=== PATIENT | female | born 1935 | race Caucasian/White ===

== ENCOUNTER 2016-10-06 13:20 | Inpatient (IN) | payer MEDICARE ==
[~2016-10-06] VITALS: Ht 165.1 cm; Wt 87.3 kg
[~2016-10-06 13:20] MED LIST: ALPR0.5T6 PO; APIX2.5T PO; ASPI-515; CALC1TAB87; CHOL200012 PO; ENAL20TA68 PO; HYDR-3240 PO; LOVA10TA PO; METO-93 PO; MULT-516 PO; OMEP20CA9 PO; POLY17PO5 PO; SENN-25 PO; TUMS PO; WARF5TAB
[2016-10-06 14:17] VITALS: BP 125/75
[2016-10-06] MEDS ORDERED: SODIUM CHLORIDE 0.9% 1,000 ML IV SCH (14:30)
[2016-10-06] MEDS ORDERED: MIDAZOLAM 1 MG/ML, 5ML ONE (14:54)
[2016-10-06] MEDS ORDERED: PROTAMINE SULFATE 10 MG/ML, 25ML ONE (14:54)
[2016-10-06] MEDS ORDERED: NITROGLYCERIN 5 MG/ML, 10ML ONE (14:55)
[2016-10-06] MEDS ORDERED: FENTANYL PF 100 MCG/2ML ONE (14:55)
[2016-10-06] MEDS ORDERED: FLUMAZENIL 0.1 MG/1 ML, 5ML ONE (14:55)
[2016-10-06] MEDS ORDERED: NALOXONE 1 MG/ML, 2ML ONE (14:55)
[2016-10-06] MEDS ORDERED: HEPARIN 1,000 UNITS/ML, 10ML ONE (14:55)
[2016-10-06] MEDS ORDERED: VISIPAQUE 270 MG/ML, 50ML BOTTLE ONE (15:00)
[2016-10-06 15:04] LABS: BLOOD UREA NITROGEN 21 mg/dL (7-18)
[2016-10-06] MEDS ORDERED: LIDOCAINE 2%, 20ML ONE (15:07)
[2016-10-06] MEDS ORDERED: CEFAZOLIN PMX 1GM/50ML 50 ML ONE (15:18)
[2016-10-06] MEDS ORDERED: HEPARIN 25,000 UNITS/500ML PMX 500 ML ONE (16:19)
[2016-10-06] MEDS ORDERED: ALTEPLASE 10 MG in SODIUM CHLORIDE 0.9% 90 ML IV SCH (16:30)
[2016-10-06] MEDS ORDERED: SODIUM CHLORIDE 0.9% IV ONE (16:30)
[2016-10-06] MEDS ORDERED: ALTEPLASE CATHFLO IV ONE (16:30)
[2016-10-06] MEDS ORDERED: HEPARIN 25,000 UNITS/500ML PMX 500 ML IV ONE (17:00)
[2016-10-06] MEDS ORDERED: ACETAMINOPHEN 325 MG TABLET PO PRN (18:00)
[2016-10-06] MEDS ORDERED: OXYcodone IR 5MG TABLET PO PRN (18:00)
[2016-10-06] MEDS ORDERED: TEMAZEPAM 15 MG CAPSULE PO PRN (18:00)
[2016-10-06] MEDS ORDERED: ENALAPRILAT 1.25 MG/ML, 2ML IVPush PRN (18:00)
[2016-10-06] MEDS ORDERED: ONDANSETRON 2MG/ML, 2ML IVP PRN (18:00)
[2016-10-06] MEDS: ALTEPLASE 10 MG in SODIUM CHLORIDE 0.9% 90 ML IV SCH (18:24)
[2016-10-06] MEDS ORDERED: CEFAZOLIN PMX 2GM/100ML 100 ML IV SCH (18:30)
[2016-10-06] MEDS ORDERED: hydrALAzine 20 MG/ML, 1ML IV PRN (18:30)
[2016-10-06] MEDS ORDERED: POLYETHYLENE GLYCOL 17 GM PACKET PO PRN (19:00)
[2016-10-06] MEDS: SODIUM CHLORIDE 0.9% 1,000 ML IV SCH (19:35)
[2016-10-06] MEDS: MORPHINE SULFATE 4 MG/ML, 1ML IVPush PRN (19:35)
[2016-10-06] MEDS: CEFAZOLIN PMX 2GM/50ML 50 ML IV SCH (20:34)
[2016-10-06] MEDS: SENNA/DOCUSATE TABLET PO SCH (21:00)
[2016-10-06] MEDS: HYDROcodone/APAP 5/325 TABLET PO PRN (22:34)
[2016-10-07] MEDS: ALTEPLASE 10 MG in SODIUM CHLORIDE 0.9% 90 ML IV SCH ×3 (00:10→21:05)
[2016-10-07] MEDS: MORPHINE SULFATE 4 MG/ML, 1ML IVPush PRN (00:10)
[2016-10-07] MEDS: SODIUM CHLORIDE 0.9% 1,000 ML IV SCH ×2 (02:59→14:33)
[2016-10-07] MEDS ORDERED: TRAZODONE 50MG TABLET PO ONE (03:00)
[2016-10-07] MEDS ORDERED: MORPHINE SULFATE 4 MG/ML, 1ML IVPush PRN (04:00)
[2016-10-07 04:50] LABS: ASPARTATE AMINO TRANSFERASE 14 U/L (15-37); BLOOD UREA NITROGEN 18 mg/dL (7-18)
[2016-10-07] MEDS: METOPROLOL SUCCINATE 50 MG TAB.ER.24H PO SCH (05:20)
[2016-10-07] MEDS: SENNA/DOCUSATE TABLET PO SCH ×2 (09:22→22:36)
[2016-10-07] MEDS: MULTIVITAMIN 1 TABLET PO SCH (09:22)
[2016-10-07] MEDS: CEFAZOLIN PMX 2GM/50ML 50 ML IV SCH ×2 (09:22→20:12)
[2016-10-07] MEDS: OMEPRAZOLE 20 MG CAPSULE.DR PO SCH (09:23)
[2016-10-07] MEDS: LOVASTATIN 40 MG TABLET PO SCH (09:23)
[2016-10-07] MEDS: CALCIUM CARBONATE 500 MG TAB.CHEW PO SCH (09:23)
[2016-10-07] MEDS: CHOLECALCIFEROL 1,000 UNIT TABLET PO SCH (09:23)
[2016-10-07] MEDS: ENALAPRIL 20MG TABLET PO SCH (09:24)
[2016-10-07] MEDS ORDERED: FENTANYL PF 100 MCG/2ML ONE ×2 (10:53→16:53)
[2016-10-07] MEDS ORDERED: MIDAZOLAM 1 MG/ML, 5ML ONE ×2 (10:53→16:53)
[2016-10-07] MEDS ORDERED: NALOXONE 1 MG/ML, 2ML ONE ×2 (10:54→16:54)
[2016-10-07] MEDS ORDERED: HEPARIN 1,000 UNITS/ML, 10ML ONE ×2 (10:54→16:54)
[2016-10-07] MEDS ORDERED: FLUMAZENIL 0.1 MG/1 ML, 5ML ONE ×2 (10:54→16:54)
[2016-10-07] MEDS ORDERED: PROTAMINE SULFATE 10 MG/ML, 25ML ONE ×2 (10:54→16:54)
[2016-10-07] MEDS ORDERED: LIDOCAINE 2%, 20ML ONE (16:53)
[2016-10-07] MEDS ORDERED: VISIPAQUE 270 MG/ML, 50ML BOTTLE ONE (18:04)
[2016-10-08] MEDS: SODIUM CHLORIDE 0.9% 1,000 ML IV SCH ×3 (00:58→23:01)
[2016-10-08] MEDS: METOPROLOL SUCCINATE 50 MG TAB.ER.24H PO SCH (05:38)
[2016-10-08] MEDS: CEFAZOLIN PMX 2GM/50ML 50 ML IV SCH ×2 (07:20→19:04)
[2016-10-08] MEDS: ALTEPLASE 10 MG in SODIUM CHLORIDE 0.9% 90 ML IV SCH (07:25)
[2016-10-08 08:00] VITALS: BP 104/73
[2016-10-08] MEDS: ENALAPRIL 20MG TABLET PO SCH (09:00)
[2016-10-08] MEDS: CHOLECALCIFEROL 1,000 UNIT TABLET PO SCH (09:27)
[2016-10-08] MEDS: MULTIVITAMIN 1 TABLET PO SCH (09:27)
[2016-10-08] MEDS: SENNA/DOCUSATE TABLET PO SCH ×2 (09:27→21:00)
[2016-10-08] MEDS: CALCIUM CARBONATE 500 MG TAB.CHEW PO SCH (09:28)
[2016-10-08] MEDS: OMEPRAZOLE 20 MG CAPSULE.DR PO SCH (09:28)
[2016-10-08] MEDS: LOVASTATIN 40 MG TABLET PO SCH (09:28)
[2016-10-08] MEDS ORDERED: MIDAZOLAM 1 MG/ML, 5ML ONE (11:06)
[2016-10-08] MEDS ORDERED: FENTANYL PF 100 MCG/2ML ONE (11:06)
[2016-10-08] MEDS ORDERED: FLUMAZENIL 0.1 MG/1 ML, 5ML ONE (11:06)
[2016-10-08] MEDS ORDERED: NALOXONE 1 MG/ML, 2ML ONE (11:06)
[2016-10-08] MEDS ORDERED: [UNRECOGNIZED DRUG - REMARK] MC SCH (12:30)
[2016-10-08] MEDS ORDERED: DO NOT GIVE HEPARIN BOLUS MC SCH (12:30)
[2016-10-08] MEDS ORDERED: SODIUM CHLORIDE 0.9% 1,000 ML IV SCH (13:00)
[2016-10-08] MEDS ORDERED: WARFARIN 5 MG TABLET PO-COUM ONE (18:00)
[2016-10-08] MEDS: HEPARIN 25,000 UNITS/500ML PMX 500 ML IV PRN (18:11)
[2016-10-08 18:13] LABS: BLOOD UREA NITROGEN 8 mg/dL (7-18)
[2016-10-08 18:17] LABS: IS PT STATUS REG ER OR PRE ER? NO
[2016-10-09] MEDS: HEPARIN 25,000 UNITS/500ML PMX 500 ML IV PRN ×2 (01:21→14:16)
[2016-10-09 04:00] VITALS: BP 107/50
[2016-10-09] MEDS: METOPROLOL SUCCINATE 50 MG TAB.ER.24H PO SCH (06:00)
[2016-10-09 06:25] LABS: BLOOD UREA NITROGEN 9 mg/dL (7-18)
[2016-10-09] MEDS: CEFAZOLIN PMX 2GM/50ML 50 ML IV SCH (07:15)
[2016-10-09] MEDS: OMEPRAZOLE 20 MG CAPSULE.DR PO SCH (07:16)
[2016-10-09] MEDS: SENNA/DOCUSATE TABLET PO SCH ×2 (09:00→20:25)
[2016-10-09] MEDS: CHOLECALCIFEROL 1,000 UNIT TABLET PO SCH (09:09)
[2016-10-09] MEDS: MULTIVITAMIN 1 TABLET PO SCH (09:09)
[2016-10-09] MEDS: LOVASTATIN 40 MG TABLET PO SCH (09:09)
[2016-10-09] MEDS: CALCIUM CARBONATE 500 MG TAB.CHEW PO SCH (09:09)
[2016-10-09] MEDS: SODIUM CHLORIDE 0.9% 1,000 ML IV SCH (10:00)
[2016-10-09] MEDS: HYDROcodone/APAP 5/325 TABLET PO PRN ×2 (13:13→20:24)
[2016-10-09 14:30] VITALS: BP 128/72
[2016-10-09] MEDS: ALPRAZOLAM MC SCH ×2 (16:05→20:25)
[2016-10-09] MEDS ORDERED: WARFARIN 5 MG TABLET PO-COUM ONE (18:00)
[2016-10-09 20:00] VITALS: BP 138/75
[2016-10-10] MEDS: HYDROcodone/APAP 5/325 TABLET PO PRN ×2 (01:04→17:58)
[2016-10-10 01:57] VITALS: BP 139/56
[2016-10-10 06:05] VITALS: BP 128/70
[2016-10-10] MEDS: METOPROLOL SUCCINATE 50 MG TAB.ER.24H PO SCH (06:07)
[2016-10-10 06:14] LABS: ANTI-Xa-UNFRACTIONATED HEP 0.46 IU/mL (0.30-0.70)
[2016-10-10 06:37] LABS: BLOOD UREA NITROGEN 12 mg/dL (7-18)
[2016-10-10 06:44] VITALS: BP 144/79
[2016-10-10] MEDS: ALPRAZOLAM MC SCH (07:00)
[2016-10-10] MEDS: HEPARIN 25,000 UNITS/500ML PMX 500 ML IV PRN (08:32)
[2016-10-10] MEDS: CALCIUM CARBONATE 500 MG TAB.CHEW PO SCH (08:33)
[2016-10-10] MEDS: CHOLECALCIFEROL 1,000 UNIT TABLET PO SCH (08:33)
[2016-10-10] MEDS: OMEPRAZOLE 20 MG CAPSULE.DR PO SCH (08:33)
[2016-10-10] MEDS: MULTIVITAMIN 1 TABLET PO SCH (08:33)
[2016-10-10] MEDS: SENNA/DOCUSATE TABLET PO SCH ×2 (08:33→20:55)
[2016-10-10] MEDS ORDERED: ENALAPRIL 20MG TABLET PO SCH (09:00)
[2016-10-10 13:06] VITALS: BP 159/71
[2016-10-10] MEDS: ENOXAPARIN 80 MG/0.8 ML SQ SCH (15:52)
[2016-10-10] MEDS ORDERED: ENOXAPARIN 80 MG/0.8 ML SQ SCH (17:00)
[2016-10-10] MEDS ORDERED: WARFARIN 5 MG TABLET PO-COUM ONE (18:00)
[2016-10-10 18:49] VITALS: BP 118/66
[2016-10-10] MEDS: LOVASTATIN 40 MG TABLET PO SCH (20:55)
[2016-10-11 02:30] VITALS: BP 123/73
[2016-10-11] MEDS ORDERED: ENOXAPARIN 80 MG/0.8 ML SQ SCH (03:30)
[2016-10-11] MEDS: ENOXAPARIN 80 MG/0.8 ML SQ SCH (05:03)
[2016-10-11] MEDS: METOPROLOL SUCCINATE 50 MG TAB.ER.24H PO SCH (05:58)
[2016-10-11 07:51] VITALS: BP 147/66
[2016-10-11] MEDS: CALCIUM CARBONATE 500 MG TAB.CHEW PO SCH (07:58)
[2016-10-11] MEDS: OMEPRAZOLE 20 MG CAPSULE.DR PO SCH (07:58)
[2016-10-11] MEDS: SENNA/DOCUSATE TABLET PO SCH (07:59)
[2016-10-11] MEDS: CHOLECALCIFEROL 1,000 UNIT TABLET PO SCH (08:00)
[2016-10-11] MEDS: MULTIVITAMIN 1 TABLET PO SCH (08:00)
[2016-10-11] MEDS ORDERED: ENALAPRIL 20MG TABLET PO SCH (09:00)
[2016-10-11 13:55] VITALS: BP 141/83
[2016-10-11] MEDS ORDERED: WARF5TAB PO (14:58)
[2016-10-11] MEDS ORDERED: HYDR-3240 PO (15:01)
[2016-10-11] MEDS ORDERED: WARF5TAB7 PO (15:47)
[2016-10-11] MEDS ORDERED: WARFARIN 2 MG TABLET PO-COUM ONE (18:00)
== END 2016-10-11 16:55 | disposition home or self-care (01) | DRG 252 ==
LOC: RAD 13:20 → CCU 17:20 → RAD 18:27 → CCU 18:28 → 5SO 10-09 14:22
PROVIDERS: ADMIT Surgery; ATTEND Surgery
PROC: B41FYZZ Fluoroscopy of Right Lower Extremity Arteries using Other Contrast (ICD-10-PCS; principal; 2016-10-06)
PROC: 3E05317 Introduction of Other Thrombolytic into Peripheral Artery, Percutaneous Approach (ICD-10-PCS; 2016-10-06)
PROC: 047M3Z1 Dilation of Right Popliteal Artery using Drug-Coated Balloon, Percutaneous Approach (ICD-10-PCS; 2016-10-07)
PROC: 3E05317 Introduction of Other Thrombolytic into Peripheral Artery, Percutaneous Approach (ICD-10-PCS; 2016-10-07)
PROC: B41FYZZ Fluoroscopy of Right Lower Extremity Arteries using Other Contrast (ICD-10-PCS; 2016-10-07)
PROC: 04HM33Z Insertion of Infusion Device into Right Popliteal Artery, Percutaneous Approach (ICD-10-PCS; 2016-10-07)
PROC: B410YZZ Fluoroscopy of Abdominal Aorta using Other Contrast (ICD-10-PCS; 2016-10-08)
PROC: B41DYZZ Fluoroscopy of Aorta and Bilateral Lower Extremity Arteries using Other Contrast (ICD-10-PCS; 2016-10-08)
DX: I74.3 Embolism and thrombosis of arteries of the lower extremities (principal); N17.0 Acute kidney failure with tubular necrosis; D68.69 Other thrombophilia; I70.201 Unspecified atherosclerosis of native arteries of extremities, right leg; N18.9 Chronic kidney disease, unspecified; I48.2 Chronic atrial fibrillation; E55.9 Vitamin D deficiency, unspecified; E78.5 Hyperlipidemia, unspecified; F41.9 Anxiety disorder, unspecified; I12.9 Hypertensive chronic kidney disease with stage 1 through stage 4 chronic kidney disease, or unspecified chronic kidney disease; J44.9 Chronic obstructive pulmonary disease, unspecified; Z79.899 Other long term (current) drug therapy; Z79.01 Long term (current) use of anticoagulants; Z89.421 Acquired absence of other right toe(s); Z90.49 Acquired absence of other specified parts of digestive tract; Z85.828 Personal history of other malignant neoplasm of skin
CPT/HCPCS: 36415; 37211; 37213; 37214; 75710; 80048; 80053; 83735; 84484; 85025; 85384; 85520; 85610; 87081; 93005; 93306; 99156; 99157; J0690; J1644; J1650; J2250; J2720; J2997; J3010; J3490; Q9966; C1751; C1760; C1769; C1894; C2623; J2310; J7030

== ENCOUNTER → 2017-04-22 | Outpatient (CLI) | payer MEDICARE ==
[~2017-04-22] MED LIST changes: -CHOL200012 PO; +CHOL200074 PO; +WARF5TAB PO; +WARF5TAB7 PO
== END | disposition home or self-care (01) ==
LOC: CVU 08:45
PROVIDERS: ATTEND Surgery
DX: I73.9 Peripheral vascular disease, unspecified (principal); I77.1 Stricture of artery; J44.9 Chronic obstructive pulmonary disease, unspecified; I10 Essential (primary) hypertension; Z89.411 Acquired absence of right great toe
CPT/HCPCS: 93922; 93925

== ENCOUNTER 2019-01-11 15:08 | Outpatient (CLI) | payer MEDICARE | END 2019-01-11 23:59 | disposition home or self-care (01) | LOC: CVU 15:08 | PROVIDERS: ATTEND Internal Medicine Cardiovascular Disease | DX: I65.23 Occlusion and stenosis of bilateral carotid arteries (principal) | CPT/HCPCS: 93880 ==

== ENCOUNTER 2019-12-18 08:29 | Observation (INO) | payer MEDICARE ==
[~2019-12-18] VITALS: Ht 165.1 cm; Wt 68.5 kg
[~2019-12-18 08:29] MED LIST changes: +WARF-36 PO; -WARF5TAB; -WARF5TAB PO; +WARF5TAB2; +WARF5TAB2 PO; -WARF5TAB7 PO
[2019-12-18] MEDS ORDERED: APIX5TAB PO (09:00)
[2019-12-18] MEDS ORDERED: ROSU20TA2 PO (09:00)
--- NOTE | 2019-12-18 09:00 | NUR ---
Please see triage note. Pt resting on gurney connected to NIBP cuff, continous pulse ox, and front desk monitor. Bed rails up x2 for safety. Call light within reach. VSS please see triage vital signs. Pt is AOX4. Pt's POA is Leticia Herron, . NADN. Warm blankets provided per pt request. No other needs expressed at this time. Pending EDMD to see.
--- NOTE | 2019-12-18 09:07 | NUR ---
Provided bedside report to BI De Leon. All questions answered. BI De Leon to assume care of pt at this time.
[2019-12-18] MEDS ORDERED: NEOSPORIN OINT. PKT 1 PACKET ONE ×2 (09:27)
[2019-12-18] MEDS ORDERED: MORPHINE SULFATE 4 MG/ML, 1ML IVPush PRN (09:30)
[2019-12-18] MEDS ORDERED: DIPH,PERTUSS(ACELL),TET VAC/PF 0.5 ML IM-VACC ONE ×2 (09:30→10:45)
[2019-12-18] MEDS ORDERED: SODIUM CHLORIDE FLUSH 10ML SYR IVF ONE (09:30)
[2019-12-18] MEDS ORDERED: ONDANSETRON 2MG/ML, 2ML IVPush ONE (09:30)
[2019-12-18] MEDS ORDERED: ONDANSETRON 2MG/ML, 2ML ONE (09:41)
[2019-12-18] MEDS ORDERED: MORPHINE SULFATE 4 MG/ML, 1ML ONE (09:41)
--- NOTE | 2019-12-18 09:50 | NUR ---
report taken from BI [place], PIV placed, pt medicated per emar, tolerated well. pt taken to CT. pt is a&o, resps even and unlabored, nadn. spo2 maintained >94% on room air s/p morphine, however pt placed on oxygen at 2L/min via NC for transport.
--- NOTE | 2019-12-18 10:00 | NUR ---
pt back from CT, radiology at bedside for xray.
--- NOTE | 2019-12-18 10:22 | NUR ---
pt states head and finger pain improved s/p morphine admin. pt a&o, resps even and unlabored, spo2 100% on 2L oxygen via [place]. pt informed of plan to straight cath for ua, pt agreeable. pt remains a&ox4, neuro intact. all monitors in place. call light in reach.
[2019-12-18 10:25] LABS: BASOPHILS # (AUTO) 0.02 x10^3/uL (0-0.1); BASOPHILS % (AUTO) 0 % (0-1); EOSINOPHILS % (AUTO) 1 % (1-7); LYMPHOCYTES # (AUTO) 1.22 x10^3/uL (1-3.4); LYMPHOCYTES % (AUTO) 14 % (22-44); MD NO; MEAN CORPUSCULAR HEMOGLOBIN 29.1 pg (27.0-34.8); MEAN CORPUSCULAR HGB CONC 33.1 g/dL (32.4-35.8); MEAN PLATELET VOLUME 8.1 fL (7.4-10.4); MONOCYTES # (AUTO) 0.59 x10^3/uL (0.2-0.8); MONOCYTES % (AUTO) 7 % (2-9); NEUTROPHILS # (AUTO) 6.85 x10^3/uL (1.8-6.8); NEUTROPHILS % (AUTO) 78 % (42-75); PLATELET COUNT 148 x10^3/uL (130-400)
[2019-12-18 10:36] LABS: INTERNATIONAL NORMALIZED RATIO 0.99 (0.93-1.1); PROTHROMBIN TIME 10.5 Seconds (9.6-11.5)
[2019-12-18 10:37] LABS: ALBUMIN 3.4 g/dL (3.4-5.0); ANION GAP 3 mmol/L (5-15); CALCIUM 8.9 mg/dL (8.5-10.1); CHLORIDE 114 mmol/L (98-107)
[2019-12-18 10:41] LABS: ALANINE AMINOTRANSFERASE 17 U/L (12-78); ALKALINE PHOSPHATASE 47 U/L (45-117); BILIRUBIN,TOTAL 0.4 mg/dL (0.2-1.0); TOTAL PROTEIN 7.8 g/dL (6.4-8.2)
--- NOTE | 2019-12-18 10:48 | NUR ---
BEL BAKER NOTIFIED PT HAD RT HIP SURGERY 2 WEEKS AGO, HIP TENDER TO LIGHT TOUCH. BEL ORDERED RT HIP XRAY.
[2019-12-18 10:56] LABS: MICROSCOPIC AUTO
--- NOTE | 2019-12-18 10:59 | NUR ---
straight cath ua obtained, sterile technique maintained. sample walked to lab.
--- NOTE | 2019-12-18 11:20 | NUR ---
PT A&O, RESPS EVEN AND UNLABORED, STATES PAIN LEVEL TOLERABLE, DECLINES SECOND DOSE MORPHINE. PT TAKEN TO XRAY AT THIS TIME. DAUGHTER AT BEDSIDE, GIVEN UPDATE WITH PT PERMISSION.
--- NOTE | 2019-12-18 11:58 | NUR ---
Assumed care at this time. Pt resting and talking room.
--- NOTE | 2019-12-18 12:00 | NUR ---
REPORT GIVEN TO BI AHMADI WHO IS ASSUMING CARE, ADMIT PENDING AMBULATION TRIAL.
--- NOTE | 2019-12-18 12:13 | NUR ---
AMBULATED PT FOR ABOUT 20. PT WANTED TO TURN AROUND AND GET BACK IN BED. PT WAS COMPLIANT AND A&OX4 Addendum: 12/18/19 at 1215 by MARCY PT ALSO NOTED SHE NORMALLY USES A CANE.
--- NOTE | 2019-12-18 12:31 | NUR ---
Pt reports she felt okay on ambulation trail. Pt reports she had pain but she has a cane at home to help with stability and a friend that will do a well check on her.
[2019-12-18] MEDS: SODIUM CHLORIDE 0.9% 1,000 ML IV SCH (13:57)
[2019-12-18] MEDS ORDERED: BISACODYL 10 MG SUPP PR PRN (14:00)
[2019-12-18] MEDS ORDERED: ONDANSETRON 2MG/ML, 2ML IVPush PRN (14:00)
[2019-12-18] MEDS ORDERED: ACETAMINOPHEN 325 MG TABLET PO PRN (14:00)
[2019-12-18] MEDS ORDERED: ONDANSETRON ODT 4 MG PO PRN (14:00)
[2019-12-18 17:28] VITALS: BP 116/67
[2019-12-18] MEDS: LACTOBACILLUS CHEW TABLET PO SCH ×2 (18:00→22:02)
[2019-12-18] MEDS ORDERED: ATORVASTATIN 80 MG TABLET PO SCH (21:00)
[2019-12-18] MEDS: APIXABAN 5 MG TABLET PO SCH (22:02)
[2019-12-18 23:09] VITALS: BP 118/75
[2019-12-19 01:10] VITALS: BP 104/57
[2019-12-19 05:01] LABS: BASOPHILS # (AUTO) 0.03 x10^3/uL (0-0.1); BASOPHILS % (AUTO) 0 % (0-1); EOSINOPHILS # (AUTO) 0.25 x10^3/uL (0-0.4); EOSINOPHILS % (AUTO) 3 % (1-7); LYMPHOCYTES # (AUTO) 1.76 x10^3/uL (1-3.4); LYMPHOCYTES % (AUTO) 23 % (22-44); MD NO; MEAN CORPUSCULAR HEMOGLOBIN 28.8 pg (27.0-34.8); MEAN CORPUSCULAR HGB CONC 32.6 g/dL (32.4-35.8); MEAN CORPUSCULAR VOLUME 88.5 fL (80-100); MEAN PLATELET VOLUME 7.8 fL (7.4-10.4); MONOCYTES # (AUTO) 0.67 x10^3/uL (0.2-0.8); MONOCYTES % (AUTO) 9 % (2-9); NEUTROPHILS # (AUTO) 4.95 x10^3/uL (1.8-6.8); NEUTROPHILS % (AUTO) 65 % (42-75); PLATELET COUNT 130 x10^3/uL (130-400); RED BLOOD COUNT 3.89 x10^6/uL (3.82-5.3); RED CELL DISTRIBUTION WIDTH 14.4 % (9.6-15.2)
[2019-12-19 05:11] LABS: ANION GAP 3 mmol/L (5-15); CALCIUM 8.9 mg/dL (8.5-10.1); CHLORIDE 110 mmol/L (98-107)
[2019-12-19 05:13] LABS: CREATININE 1.06 mg/dL (0.55-1.02)
[2019-12-19 06:53] VITALS: BP 122/76
[2019-12-19 07:41] VITALS: BP 122/66
[2019-12-19] MEDS ORDERED: SENNA/DOCUSATE TABLET PO SCH (09:00)
[2019-12-19] MEDS ORDERED: OMEPRAZOLE 20 MG CAPSULE.DR PO SCH (09:00)
[2019-12-19] MEDS: LACTOBACILLUS CHEW TABLET PO SCH ×2 (09:33→16:00)
[2019-12-19] MEDS: APIXABAN 5 MG TABLET PO SCH (09:34)
[2019-12-19] MEDS ORDERED: ACID1TAB7 PO (09:51)
[2019-12-19 13:22] VITALS: BP 137/50
[2019-12-19] MEDS: SODIUM CHLORIDE 0.9% 1,000 ML IV SCH (14:00)
== END 2019-12-19 16:37 | disposition home or self-care (01) ==
LOC: ED 11:12 → INTOOBSV 13:00 → EDIP 13:00 → 3N 16:00 → DCLOUNGE 12-19 16:16
PROVIDERS: ADMIT Family Medicine; ATTEND Family Medicine
DX: S01.81XA Laceration without foreign body of other part of head, initial encounter (principal); S66.514A Strain of intrinsic muscle, fascia and tendon of right ring finger at wrist and hand level, initial encounter; E86.0 Dehydration; I48.91 Unspecified atrial fibrillation; J44.9 Chronic obstructive pulmonary disease, unspecified; I73.9 Peripheral vascular disease, unspecified; I12.9 Hypertensive chronic kidney disease with stage 1 through stage 4 chronic kidney disease, or unspecified chronic kidney disease; N18.9 Chronic kidney disease, unspecified; E78.5 Hyperlipidemia, unspecified; F41.9 Anxiety disorder, unspecified; R00.1 Bradycardia, unspecified; G47.00 Insomnia, unspecified; L98.9 Disorder of the skin and subcutaneous tissue, unspecified; I10 Essential (primary) hypertension; Z79.899 Other long term (current) drug therapy; Z85.828 Personal history of other malignant neoplasm of skin; W01.0XXA Fall on same level from slipping, tripping and stumbling without subsequent striking against object, initial encounter; Y93.89 Activity, other specified; Y92.009 Unspecified place in unspecified non-institutional (private) residence as the place of occurrence of the external cause; Z79.01 Long term (current) use of anticoagulants; Z86.73 Personal history of transient ischemic attack (TIA), and cerebral infarction without residual deficits; Z23 Encounter for immunization
CPT/HCPCS: 36415; 70450; 73130; 73502; 80048; 80053; 81001; 83690; 85025; 85610; 85730; 87086; 90471; 90715; 93005; 96361; 96374; 96375; 97163; 97165; 99285; G0378; J2270; J2405; J7030